=== PATIENT | male | born 1995 | race Caucasian/White ===

== ENCOUNTER 2020-06-16 01:09 | Emergency (ER) | payer OTHER ==
[2020-06-16] MEDS ORDERED: LODINE CAP 300300 MG PO (01:46)
== END 2020-06-16 02:18 | disposition home or self-care (01) ==
LOC: ER1 01:09
DX: K03.81 Cracked tooth (principal); Z88.1 Allergy status to other antibiotic agents
CPT/HCPCS: 96372; 99282; J1885